=== PATIENT | female | born 1950 | race Caucasian/White ===

== ENCOUNTER 2020-05-09 11:04 | Observation (INO) | payer OTHER, SELFPAY ==
[2020-05-09] VITALS (25 sets, daily range): BP systolic 102–132; BP diastolic 52–73; PULSE 60–91; RESP 8–26; TEMP 36.2–37; O2SAT 97–100
--- NOTE | 2020-05-09 12:15 | RT.EKG_ITS ---
APPROVED REPORT Exam: Resting ECG Patient Location: E HR:66 bpm ECG Measurements Heart Rate 66 AXIS MA 173 P 61 QRSd 82 QRS 39 QT 392 T -8 QTc 411 Conclusion Sinus rhythm...normal P axis, V-rate 60- 99 sinus rhythm at 66, normal axis, flat T waves lead aVF, no STEMI, no prior available for comparison, nondiagnostic EKG
[2020-05-09 12:42] LABS: Abs Immature Grans 0.04 10^3/uL (0.0-0.06); Absolute Basophil Count 0.04 10^3/uL (0.0-0.2); Absolute Eosinophil Count 0.16 10^3/uL (0.0-0.7); Absolute Lymphocyte Count 2.17 10^3/uL (1.2-3.4); Absolute Monocyte Count 0.93 10^3/uL (0.1-0.8); Absolute Neutrophil Count 6.22 10^3/uL (1.2-6.7); Basophils % 0.4; Eosinophils % 1.7; HCT 42.4 % (36.0-46.0); HGB 14.7 g/dL (11.2-15.7); Immature Grans % 0.4; Lymphocytes % 22.7; MCH 29.1 pg (27.0-33.0); MCHC 34.7 % (32.0-36.0); MCV 83.8 fL (80-95); MPV 10.9 fL (8.0-11.0); Monocytes % 9.7; Neutrophils % 65.1; Nucleated RBC 0 %; Platelet Count 331 10^3/uL (130-400); RBC 5.06 10^6/uL (3.93-5.22); RDW 13.9 % (11.7-14.6); RDW-SD 42.4 fL; WBC 9.56 10^3/uL (4.4-10.8)
[2020-05-09 12:58] LABS: ALT 34 U/L (14-59); AST 20 U/L (15-37); Alkaline Phosphatase 77 U/L (46-116); BUN 25 mg/dL (7-18); Bilirubin, Total 0.6 mg/dL (0.2-1.0); CREATININE 1.34 mg/dL (0.55-1.02); Calcium 9.8 mg/dL (8.5-10.1); Chloride 100 mmol/L (98-107); Estimated GFR 39.33 (mL/min/1.73m2); Glucose 101 mg/dL (74-106); Lipase 248 U/L (73-393); Potassium 4.1 mmol/L (3.5-5.1); Sodium 135 mmol/L (136-145); Total Protein 7.7 g/dL (6.4-8.2); Troponin I < 0.05 ng/mL (<0.06)
--- NOTE | 2020-05-09 13:00 | DI.US_ITS ---
EXAM: US ABDOMEN LIMITED CLINICAL HISTORY: RUQ pain TECHNIQUE: Ultrasound abdomen performed using standard protocol. COMPARISON: No exams were available for comparison FINDINGS: There is no ascites evident. LIVER: Liver is somewhat hyperechoic indicating an element of steatosis. No discrete focal hepatic l esions identified. GALLBLADDER/BILIARY: Some gallbladder sludge. No gallbladder wall edema. No calcified gallstones. The common hepatic duct isnot dilated, measuring 3-4mm at the level of elise hepatis. PANCREAS: There is no evidence of pancreatic mass nor dilatation of the pancreatic duct. RIGHT KIDNEY:No evidence of solid mass, calculus, nor hydronephrosis. No cortical cysts evident. ABDOMINAL AORTA AND IVC: Visualized portions exhibit normal caliber. GALLBLADDER/BILIARY: Appears to be some sludge in the gallbladder. No shadowing gallstones. IMPRESSION: 1. No evidence of cholelithiasis nor dilatation of the biliary tree. Mild gallbladder sludge noted. 2. Hepatic steatosis. Correlation with appropriate hepatic blood work is recommended. 3. No other significant right upper quadrant ultrasound findings. DATA REPOSITORY:
[2020-05-09 13:04] LABS: Bilirubin Small (Negative); Blood Negative (Negative); Clarity Clear (Clear); Glucose Negative (Negative); Ketones 15 mg/dL (Negative); Leukocyte Esterase Negative (Negative); Nitrite Negative (Negative); Specific Gravity 1.025 (1.005-1.025); Urobilinogen 0.2 EU/dL (Up TO 0.2); pH 5.5 (5-8)
[2020-05-09 13:06] LABS: TSH (W/Ref FT4) 1.82 uIU/mL (0.36-3.74)
--- NOTE | 2020-05-09 13:19 | ED.GENADUL_ITS ---
Discharge Plan Disposition Condition: Improving Discharge Details Chief Complaint: Abd Prob Admit Date/Time: 05/09/20 15:15 Admit Provider: Eric Harper Attending Provider: Eric Harper Primary Care Provider: Venita Pelaez ED Provider: Zena Hyatt Discharge Instructions Activity:: Activity as Tolerated Equipment/Supplies:: No Equipment Needed Diet:: As Tolerated Discharge Orders Discharge Orders: Discharge Order (Routine); Ordered 05/10/20 Ordered By: Bijal Crystal Discharge Data Discharge Date/Time-TO BE ENTERED AT DEPARTURE: 05/09/20 16:28 Medical Decision Making Mena Moran is a 70 y/o woman who presented to the emergency department with abdominal pain, nausea, appetite loss, and weight loss since , now with worsening loss of appetite. On exam Pt appears fatigued but otherwise well and non-toxic. Mild TTP across upper abdomen. No RLQ TTP, no rebound or guarding. Concern for dehydration, neoplasm, metabolic/lyte derangement, other. Exam/hx at this time not c/w ACS, acute aortic pathology, acute emergent intra- abdominal pathology. Plan for EKG, screening labs, IV fluid hydration, given two recent CT abdomen/pelvis for same symptoms will hold off on CT at this time, will obtain right upper quadrant ultrasound. Will monitor and reassess. Labs reviewed. AG and Cr elevated. Suspect dehydration. Plan for continued IVF, admit for hydration, further eval. Clinical Impression: abdominal pain, dehydration Disposition: [facility] inpatient Medical Records Medical records reviewed: Yes I reviewed the patient's medical records. Imaging Data Radiologic Study: Attestation: I personally reviewed and interpreted this imaging study as follows: Lab Data Lab results reviewed: Yes I reviewed the patient's lab results. ECG Data Attestation: I personally reviewed and interpreted this ECG (s) as follows: Interpretation: EKG shows sinus rhythm at 66, normal axis, flat T waves lead aVF, no STEMI, no prior available for comparison, nondiagnostic EKG HPI General Mode of arrival: ambulatory . Date/Time Provider Initiated Documentation: 05/09/20 11:15 . Limitations to Documentation: no limitations . Information obtained by: patient, RN notes reviewed and old records reviewed . HPI Narrative: Mena Moran is a 70-year-old woman with a history of hypertension, hyperlipidemia presenting to the emergency department with appetite loss, nausea, abdominal pain. Patient reports that around she noticed that she had some loss of appetite with intermittent nausea. No known inciting event. Patient reports that she then began to have intermittent abdominal pain, had significant diarrhea which resolved. Patient reports that she has had continued intermittent nausea, intermittent abdominal pain, and severely decreased appetite. Patient reports that since onset of symptoms she has been seen in the [facility] emergency department 3 times. She has undergone 2 CT scans of the abdomen during that time, which were both nondiagnostic. Patient had an upper endoscopy which showed polyps. Patient has been taking medications for reflux/gastritis with no improvement in her symptoms. Patient reports that her appetite has become so poor that she is having trouble drinking liquids, and has not had anything to eat for 3 days. She reports intermittent generalized abdominal pain, intermittent right upper quadrant pain, and intermittent pain in her right upper back in the area of her shoulder blade. She denies any other pain, fevers, shortness of breath, cough, vomiting, numbness, weakness, rash. Never had similar symptoms in the past. Patient reports that she has lost 20 pounds since onset of symptoms. Related Data Home Medications Medication Instructions Recorded Confirmed hydrochlorothiazide 25 mg DAILY 05/09/20 05/09/20 lisinopril 20 mg PO DAILY 05/09/20 05/09/20 lisinopril 40 mg PO DAILY 05/09/20 05/09/20 metoprolol succinate 50 mg PO DAILY 05/09/20 05/09/20 omeprazole 20 mg PO BID-QID 05/09/20 05/09/20 potassium chloride 20 meq PO 05/09/20 rosuvastatin 10 mg PO DAILY 05/09/20 05/09/20 Allergies Allergy/AdvReac Type Severity Reaction Status Date / Time morphine Allergy Intermediate Hives Unverified 05/09/20 19:08 tizanidine [From Zanaflex] Allergy Intermediate Hives Unverified 05/09/20 19:08 valdecoxib [From Bextra] Allergy Intermediate Hives Unverified 05/09/20 19:08 General Stated Complaint: Abd Prob CHI: 3 Review of Systems Narrative: Constitutional: denies fevers, reports loos of appetite Eyes: denies eye pain ENT: denies ear pain, dental pain, sore throat Cardiovascular: denies chest pain Respiratory: denies SOB, cough GI: denies vomiting, reports abdominal pain, nausea, diarrhea as per HPI : denies flank pain MSK: denies neck pain, arthralgias, myalgias, reports right upper back pain as per HPI Skin: denies rash Neuro: denies headaches, numbness, weakness PFSH Medical History Abdominal pain HTN (hypertension) Hyperlipidemia Social History Smoking/Tobacco Use Status: Never Smoking risk assessment performed?: Yes Alcohol Intake: former Do you feel safe at home: Yes Do you feel safe in your relationship?: Yes Exam Narrative Exam Narrative: Constitutional: well and [id number], appears fatigued, conversing normally HENT: head atraumatic/normocephalic/normal inspection, mucous membranes moist Eyes: conjunctiva normal, sclera normal, pupils 3mm b/l Neck: no stridor, normal ROM, trachea midline Chest: normal inspection Resp: normal work of breathing, LCTAB Cardio: normal rate, normal rhythm, no murmur appreciated GI: abdomen soft, mild TTP across upper abdomen, no RLQ TTP, non-distended Back: normal inspection, no rash, no TTP Skin: warm, dry, normal color, no rash Neuro: alert, not altered, grossly non-focal, normal tone Ext: no edema Psych: normal mood, normal affect, normal behavior Course Vital Signs Vital signs: Respiratory Effort 05/09/20 11:48 Lab/Test Results Lab/Test Results: Laboratory Tests Range/Units 05/09/20 05/09/20 05/09/20 12:25 12:25 12:25 WBC (4.4-10.8) 10^3/uL 9.56 RBC (3.93-5.22) 10^6/uL 5.06 Hgb (11.2-15.7) g/dL 14.7 Hct (36.0-46.0) % 42.4 MCV (80-95) fL 83.8 MCH (27.0-33.0) pg 29.1 MCHC (32.0-36.0) % 34.7 RDW (11.7-14.6) % 13.9 Plt Count (130-400) 10^3/uL 331 MPV (8.0-11.0) fL 10.9 Immature Gran % 0.4 Neutrophils % 65.1 Lymphocytes % 22.7 Monocytes % 9.7 Eosinophils % 1.7 Basophils % 0.4 Nucleated RBC % % 0 Absolute Neutrophils (1.2-6.7) 10^3/uL 6.22 Absolute Lymphocytes (1.2-3.4) 10^3/uL 2.17 Absolute Monocytes (0.1-0.8) 10^3/uL 0.93 H Absolute Eosinophils (0.0-0.7) 10^3/uL 0.16 Absolute Basophils (0.0-0.2) 10^3/uL 0.04 Sodium (136-145) mmol/L 135 L Potassium (3.5-5.1) mmol/L 4.1 Chloride (98-107) mmol/L 100 Carbon Dioxide (21.0-32.0) mmol/L 22.0 Anion Gap (3-11) mmol/L 13.0 H BUN (7-18) mg/dL 25 H Creatinine (0.55-1.02) mg/dL 1.34 H Estimated GFR/1.73 m2 (mL/min/1.73m2) 39.33 Glucose (74-106) mg/dL 101 Calcium (8.5-10.1) mg/dL 9.8 Total Bilirubin (0.2-1.0) mg/dL 0.6 AST (15-37) U/L 20 ALT (14-59) U/L 34 Alkaline Phosphatase (46-116) U/L 77 Troponin I (<0.06) ng/mL < 0.05 Total Protein (6.4-8.2) g/dL 7.7 Albumin (3.4-5.0) g/dL 4.0 Lipase (73-393) U/L 248 TSH (0.36-3.74) uIU/mL 1.82 Urine Color (Yellow) Urine Clarity (Clear) Urine pH (5-8) Ur Specific [place] (1.005-1.025) Urine Protein (Negative) mg/dL Urine Ketones (Negative) mg/dL Urine Blood (Negative) Urine Nitrite (Negative) Urine Bilirubin (Negative) Urine Urobilinogen (Up TO 0.2) EU/dL Ur Leukocyte Esterase (Negative) Urine Glucose (Negative) mg/dL Range/Units 05/09/20 12:54 WBC (4.4-10.8) 10^3/uL RBC (3.93-5.22) 10^6/uL Hgb (11.2-15.7) g/dL Hct (36.0-46.0) % MCV (80-95) fL MCH (27.0-33.0) pg MCHC (32.0-36.0) % RDW (11.7-14.6) % Plt Count (130-400) 10^3/uL MPV (8.0-11.0) fL Immature Gran % Neutrophils % Lymphocytes % Monocytes % Eosinophils % Basophils % Nucleated RBC % % Absolute Neutrophils (1.2-6.7) 10^3/uL Absolute Lymphocytes (1.2-3.4) 10^3/uL Absolute Monocytes (0.1-0.8) 10^3/uL Absolute Eosinophils (0.0-0.7) 10^3/uL Absolute Basophils (0.0-0.2) 10^3/uL Sodium (136-145) mmol/L Potassium (3.5-5.1) mmol/L Chloride (98-107) mmol/L Carbon Dioxide (21.0-32.0) mmol/L Anion Gap (3-11) mmol/L BUN (7-18) mg/dL Creatinine (0.55-1.02) mg/dL Estimated GFR/1.73 m2 (mL/min/1.73m2) Glucose (74-106) mg/dL Calcium (8.5-10.1) mg/dL Total Bilirubin (0.2-1.0) mg/dL AST (15-37) U/L ALT (14-59) U/L Alkaline Phosphatase (46-116) U/L Troponin I (<0.06) ng/mL Total Protein (6.4-8.2) g/dL Albumin (3.4-5.0) g/dL Lipase (73-393) U/L TSH (0.36-3.74) uIU/mL Urine Color (Yellow) Yellow Urine Clarity (Clear) Clear Urine pH (5-8) 5.5 Ur Specific [place] (1.005-1.025) 1.025 Urine Protein (Negative) mg/dL Negative Urine Ketones (Negative) mg/dL 15 H Urine Blood (Negative) Negative Urine Nitrite (Negative) Negative Urine Bilirubin (Negative) Small H Urine Urobilinogen (Up TO 0.2) EU/dL 0.2 Ur Leukocyte Esterase (Negative) Negative Urine Glucose (Negative) mg/dL Negative
[2020-05-09] MEDS: Normal Saline 1,000 ML 1000 ML IV (13:25)
--- NOTE | 2020-05-09 15:30 | RT.EKG_ITS ---
APPROVED REPORT Exam: Resting ECG Patient Location: E HR:65 bpm ECG Measurements Heart Rate 65 AXIS MO 181 P 72 QRSd 91 QRS 48 QT 410 T -3 QTc 428 Conclusion Sinus rhythm...normal P axis, V-rate 60- 99 twave inv III, flat aVF, no stemi
[2020-05-09 16:13] LABS: Troponin I < 0.05 ng/mL (<0.06)
--- NOTE | 2020-05-09 16:21 | W.PM.HP.N ---
Date of service: 05/09/20 Time of Service: 16:22 Assessment and Plan Assessment and plan (1) Abdominal pain: Start date: 05/09/20 Start time: 16:40 Status: Acute Assessment and plan: Abdominal pain since around thanksgiving with loss of appetite, n/v, diarrhea (since resolved), intermittent abd pain, and per patient 20 lb wt loss. Seen three times at [facility] with CT scans that were nondiagnostic, she has had an upper endoscopy but no c-scope. She continues to have loss of appetite worsening over the last 3 days. Due to renal function will hold off on CT today, hydrate with IVF, antiemetics, analgesics for pain CT scan tomorrow dennis scan r/o masses or mets when renal function improves Possible c-scope with surgery, will need GI referral on discharge. clear liquids Qualifiers: Abdominal location: epigastric Qualified Code(s): R10.13 - Epigastric pain (2) Loss of appetite: Start date: 05/09/20 Start time: 16:44 Status: Acute Assessment and plan: unknown cause at this time. As above (3) Weight loss: Start date: 05/09/20 Start time: 16:44 Status: Acute Assessment and plan: from above (4) Starvation ketoacidosis: Start date: 05/09/20 Start time: 16:48 Status: Acute Assessment and plan: Due to loss of appetite and inability to drink liquids (5) Acute kidney injury: Start date: 05/09/20 Start time: 16:46 Status: Acute Assessment and plan: Unsure baseline renal function. Will hydrate and monitor renal function likely MY due to starvation and inability to drink liquids. (6) Nausea: Start date: 05/09/20 Start time: 16:45 Status: Acute Assessment and plan: from above (7) Hyperlipidemia: Start date: 05/09/20 Start time: 16:45 Status: Chronic Assessment and plan: continue statin at this time Qualifiers: Hyperlipidemia type: unspecified Qualified Code(s): E78.5 - Hyperlipidemia, unspecified (8) HTN (hypertension): Start date: 05/09/20 Start time: 16:45 Status: Chronic Assessment and plan: Continue BB hold SEVEN and HCTZ due to Renal function Qualifiers: Hypertension type: essential hypertension Qualified Code(s): I10 - Essential (primary) hypertension (9) DVT prophylaxis: Start date: 05/09/20 Start time: 16:49 Status: Acute Assessment and plan: Subcu heparin above case discussed with Dr. Harper who is in agreement. History of Present Illness History of Present Illness Chief Complaint: Dehydration, loss of appetite, n/v, unintentional wt loss Narrative: 70 y.o female with PMH of HTN, HLD, presents to [facility] ED after months of loss of appetite, n/v/, wt loss and abd pain. Patient reports symptoms onset around Thanksgiving with loss of appetite and intermittent nausea. She also reports intermittent abdominal pain with diarrhea that has resolved. She was seen by [facility] ED 3 times. She has had 3 CT scans of the abd during this time which were nondiagnostic. Upper Endoscopy done revealed polyps. She has been taking medications for reflux and gastritis with no relief. She now reports inability to tolerate liquids for the last 3 days due to poor appetite and has not ate anything in the last 3 days. 20 lb wt loss reported in the last couple months due to symptoms. Lab reveal sodium 135, creatinine 1.34 with BUN 25, Anion gap 13.0 due to starvation acidosis otherwise unremarkable. Urine negative for nitrates and leuk est. U/s abd with mild gallbladder sludge otherwise not significant she has been asked to be admitted to M/S obs by hospitalist for further management. Will hydrate overnight, repeat labs in am, obtain dennis scan CT when renal function improves. Hold nephrotoxic medications, clears. Review of Systems All systems reviewed & are unremarkable except as noted in HPI and below PFSH Medical History Abdominal pain HTN (hypertension) Hyperlipidemia Social History Smoking/Tobacco Use Status: Never Smoking risk assessment performed?: Yes Alcohol Intake: former Do you feel safe at home: Yes Do you feel safe in your relationship?: Yes Meds Home Medications and Allergies Home Medications Medication Instructions Recorded Confirmed Type hydrochlorothiazide 25 mg DAILY 05/09/20 05/09/20 History lisinopril 20 mg PO DAILY 05/09/20 05/09/20 History lisinopril 40 mg PO DAILY 05/09/20 05/09/20 History metoprolol succinate 50 mg PO DAILY 05/09/20 05/09/20 History omeprazole 20 mg PO BID-QID 05/09/20 05/09/20 History potassium chloride 20 meq PO 05/09/20 History rosuvastatin 10 mg PO DAILY 05/09/20 05/09/20 History Allergies Allergy/AdvReac Type Severity Reaction Status Date / Time morphine Allergy Unverified 05/09/20 11:58 valdecoxib [From Bextra] Allergy Unverified 05/09/20 11:58 Exam Narrative Exam Narrative: Const: well and [id number], pleasant, conversing normally HENT: head atraumatic/normocephalic/normal inspection, mucous membranes moist Eyes: conjunctiva normal, sclera normal, pupils 3mm b/l Neck: no stridor, normal ROM, trachea midline Chest: normal inspection Resp: normal work of breathing, LCTAB Cardio: normal rate, normal rhythm, no murmur appreciated GI: abdomen soft, tender to mid epigastric, and left upper and lower quads Back: normal inspection, no rash Skin: warm, dry, normal color, no rash Neuro: alert, not altered, grossly non-focal, normal tone Ext: no edema Psych: normal mood, normal affect, normal behavior Results Labs Result diagrams: 05/09/20 12:25 05/09/20 12:25 Labs: Laboratory Results - last 24 hr 05/09/20 05/09/20 05/09/20 12:25 12:25 12:25 WBC 9.56 RBC 5.06 Hgb 14.7 Hct 42.4 MCV 83.8 MCH 29.1 MCHC 34.7 RDW 13.9 Plt Count 331 MPV 10.9 Immature Gran % 0.4 Neutrophils % 65.1 Lymphocytes % 22.7 Monocytes % 9.7 Eosinophils % 1.7 Basophils % 0.4 Nucleated RBC % 0 Absolute Neutrophils 6.22 Absolute Lymphocytes 2.17 Absolute Monocytes 0.93 H Absolute Eosinophils 0.16 Absolute Basophils 0.04 Sodium 135 L Potassium 4.1 Chloride 100 Carbon Dioxide 22.0 Anion Gap 13.0 H BUN 25 H Creatinine 1.34 H Estimated GFR/1.73 m2 39.33 Glucose 101 Calcium 9.8 Total Bilirubin 0.6 AST 20 ALT 34 Alkaline Phosphatase 77 Troponin I < 0.05 Total Protein 7.7 Albumin 4.0 Lipase 248 TSH 1.82 Urine Color Urine Clarity Urine pH Ur Specific [place] Urine Protein Urine Ketones Urine Blood Urine Nitrite Urine Bilirubin Urine Urobilinogen Ur Leukocyte Esterase Urine Glucose 05/09/20 05/09/20 12:54 15:35 WBC RBC Hgb Hct MCV MCH MCHC RDW Plt Count MPV Immature Gran % Neutrophils % Lymphocytes % Monocytes % Eosinophils % Basophils % Nucleated RBC % Absolute Neutrophils Absolute Lymphocytes Absolute Monocytes Absolute Eosinophils Absolute Basophils Sodium Potassium Chloride Carbon Dioxide Anion Gap BUN Creatinine Estimated GFR/1.73 m2 Glucose Calcium Total Bilirubin AST ALT Alkaline Phosphatase Troponin I < 0.05 Total Protein Albumin Lipase TSH Urine Color Yellow Urine Clarity Clear Urine pH 5.5 Ur Specific [place] 1.025 Urine Protein Negative Urine Ketones 15 H Urine Blood Negative Urine Nitrite Negative Urine Bilirubin Small H Urine Urobilinogen 0.2 Ur Leukocyte Esterase Negative Urine Glucose Negative Last Vital Signs Pulse 62 05/09/20 15:46 Resp 13 05/09/20 15:50 BP 116/52 L 05/09/20 15:46 Pulse Ox 100 05/09/20 15:50 COVID-19 Screening Have you, or household traveled for leisure in last 14 days?: No Had IN PERSON contact w/suspected or confirmed C-19 person: No
[2020-05-09] MEDS: Normal Saline Flush 10 ML SYR IVP ×2 (17:23→17:45)
[2020-05-09] MEDS: Heparin 5,000 UNITS/ML VIAL 5000 UNITS SC (17:24)
[2020-05-09] MEDS: Lactated Ringers 1,000 ML 100 ML IV (17:24)
[2020-05-09] MEDS: Loratidine 10 MG TAB PO (17:35)
[2020-05-09] MEDS: Ondansetron 4 MG/2 ML VIAL IVP (17:45)
[2020-05-09] MEDS: Dicyclomine 20 MG TAB PO (19:32)
[2020-05-10] MEDS: Heparin 5,000 UNITS/ML VIAL 5000 UNITS SC ×3 (00:42→15:57)
[2020-05-10] MEDS: Lactated Ringers 1,000 ML 100 ML IV ×2 (03:10→13:21)
[2020-05-10 06:52] LABS: Abs Immature Grans 0.02 10^3/uL (0.0-0.06); Absolute Basophil Count 0.03 10^3/uL (0.0-0.2); Absolute Eosinophil Count 0.19 10^3/uL (0.0-0.7); Absolute Lymphocyte Count 2.19 10^3/uL (1.2-3.4); Absolute Monocyte Count 0.73 10^3/uL (0.1-0.8); Absolute Neutrophil Count 3.78 10^3/uL (1.2-6.7); Basophils % 0.4; Eosinophils % 2.7; HGB 12.1 g/dL (11.2-15.7); Immature Grans % 0.3; Lymphocytes % 31.6; MCH 29.2 pg (27.0-33.0); MCHC 33.6 % (32.0-36.0); MPV 10.7 fL (8.0-11.0); Monocytes % 10.5; Neutrophils % 54.5; Nucleated RBC 0 %; Platelet Count 254 10^3/uL (130-400); RBC 4.14 10^6/uL (3.93-5.22); RDW 13.9 % (11.7-14.6); RDW-SD 44.3 fL; WBC 6.94 10^3/uL (4.4-10.8)
[2020-05-10 06:58] LABS: BUN 17 mg/dL (7-18); Calcium 8.7 mg/dL (8.5-10.1); Chloride 105 mmol/L (98-107); Estimated GFR 49.39 (mL/min/1.73m2); Glucose 94 mg/dL (74-106); Magnesium 1.6 mg/dL (1.8-2.4); Potassium 4.1 mmol/L (3.5-5.1); Sodium 138 mmol/L (136-145)
[2020-05-10 07:13] VITALS: BP 113/66; PULSE 61; RESP 18; TEMP 36.7; O2SAT 97
[2020-05-10] MEDS: Dicyclomine 20 MG TAB PO ×3 (08:56→15:57)
[2020-05-10] MEDS: Metoprolol CR 50 MG TABCR PO (08:56)
[2020-05-10] MEDS: Pantoprazole 40 MG VIAL IVP (08:59)
[2020-05-10] MEDS: Magnesium Gluconate 500 MG TAB PO (09:34)
[2020-05-10 11:06] LABS: COVID-19 RT-PCR UVMMC Result Negative (Negative)
[2020-05-10] MEDS: Loratidine 10 MG TAB PO (11:09)
--- NOTE | 2020-05-10 11:36 | PT.INIE ---
Date of service: 05/10/20 Time of Service: 11:36 PT Notes Visit Reasons: DEHYDRATION, ABDOMINAL PAIN Physical Therapy Inpatient Initial Evaluation Date: 05/10/2020 Referring Doctor: Radha Vargas NP PT Orders: PT CONSULT: Eval/Treat Precautions: Fall. Standard. Activity as tolerated. Patient Profile/Admitting Diagnosis: Mena is a 70-year-old female who presented to the ED on 05/09/2020 with chief complaint of loss of appetite, nausea, abdominal pain. She is diagnosed with abdominal pain, loss of appetite, weight loss, starvation ketoacidosis, acute kidney injury, nausea, hyperlipidemia. PMHX: Medical History Abdominal pain HTN (hypertension) Hyperlipidemia Social History/Home Situation: Lives with in a private home with three steps to enter and rails on both sides. Independent with all aspects of ADLs without an assistive device. Still drives. Equipment Owned/DME: None Subjective: Mena reports that she does not hurt as much as she did yesterday. States that she has walked inside her room tentimes already while holding onto IV pole. Denies nausea, vomitting and diarrhea since this morning. Objective: General Observation: IV in L brachium Mental Status: Alert and oriented x 4 Pain: 1-2/10 in the abdominal area ROM: Right Upper Extremity: Shoulder Flexion WFL. Shoulder abduction WFL. Elbow flexion WFL. Wrist flexion WFL. Opening and closing of hand WFL. Left Upper Extremity: Shoulder Flexion WFL. Shoulder abduction WFL. Elbow flexion WFL. Wrist flexion WFL. Opening and closing of hand WFL. Right Lower Extremity: Hip flexion WFL. Hip abduction WFL. Knee flexion WFL. Ankle dorsiflexion WFL. Ankle plantarflexion WFL. Left Lower Extremity: Hip flexion WFL. Hip abduction WFL. Knee flexion WFL. Ankle dorsiflexion WFL. Ankle plantarflexion WFL. Strength: Right Upper Extremity: Shoulder flexors 5/5. Shoulder abductors 5/5. Elbow flexors 5/5. Elbow extensors 5/5. Accident Report Clerk strong. Left Upper Extremity: Shoulder flexors 5/5. Shoulder abductors 5/5. Elbow flexors 5/5. Elbow extensors 5/5. Accident Report Clerk strong. Right Lower Extremity: Hip flexors 4/5. Hip abductors 5/5. Knee flexors 5/5. Knee extensors 5/5. Ankle dorsiflexors 5/5. Ankle plantarflexors 5/5. Left Lower Extremity:Hip flexors 4/5. Hip abductors 5/5. Knee flexors 5/5. Knee extensors 5/5. Ankle dorsiflexors 5/5. Ankle plantarflexors 5/5. Sensation: Intact as to pain and pressure on bilateral lower extremities. Bed Mobility/Transfers: Rolling independent Supine to sit independent Sit to supine independent Sit to stand independent Stand to sit independent Bed to chair independent Chair to bed independent Gait: 300 feet of level surface ambulation without an assistive device with PT just managing the IV pole. No report of lightheadedness, nausea, and increased abdominal pain. Balance: Static Sitting: Normal Dynamic Sitting: Normal Static Standing: Normal Dynamic Standing: Good 4-stage balance test: Able to maintain all three positions for 10 seconds but did not feel safe doing the one-legged stance. 30-second chair rise: 12/minute with no increase in abdominal pain complaint Special Tests: Mobility Limitations Standardized Measure [facility] 6 clicks Basic Mobility Inpatient Short Form: Raw Score: 24 CMS Score: 100% deficit Informed Consent/Education: Patient instructed in purpose of PT consult and plan of care. Assessment: Mena is independent with all bed mobility, transfers, and ambulation task performance without an assistive device. She does not need services at this time. May walk in the hallway twice a day as tolerated. No AD required. [place] a 47854 low complexity based on the following: History: 70-year-old female with impairment level findings, functional limitations, and past medical history as indicated above Examination: Demonstrable impairment in strength, balance, and mobility level with underlying impairments and functional limitations as documented above Presentation:Evolving Decision Makin low complexity Goals: N/A. PT eval only. Plan of Care/Treatment Plan: N/A. PT eval only. DISCHARGE RECOMMENDATIONS: Home when medically cleared by hospitalist. No equipment needs at this time. TREATMENT CODE/TIME: 60964 x 24 minutes beginning at 11:36 AM. Thank you for the opportunity to participate in the care of this patient. Candy Gomez PT, DPT, CLT [facility], [place]
--- NOTE | 2020-05-10 14:54 | PDOC.CMIN ---
- If Service Date Differs Date of service: 05/10/20 Time of Service: 14:54 Care Management Initial Assess REASON FOR HOSPITALIZATION:: Dehydration, Abdominal pain PAST MEDICAL HISTORY/PAST SURGICAL HISTORY:: Medical History. Abdominal pain. HTN (hypertension). Hyperlipidemia PREVIOUS FUNCTIONAL STATUS/SOCIAL/FAMILY SUPPORTS:: Mena lives with her , Eliud in [place]. They have three adult children who all live in [place]. Mena grew up in [place], but moved to [place] which is where her and her raised their children. 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 She has one grandson who is three, and she is able to facetime with him often. She enjoys gardening and conrado, and is independent at baseline. CURRENT FUNCTIONAL STATUS:: Mena was lying in bed when CM met with her. She reported that she is feeling much better today. She stated that her plan is to have her diet advanced and to see if she is able to tolerate food. Per provider, if she tolerates her diet she will be ready for discharge. She stated that she did eat some lunch and had a bowel movement, which she was happy about. She stated that she is still nervous that her symptoms will return. Per provider, she will monitor her overnight and will likely discharge her in the morning. CM will continue to follow. ADVANCE DIRECTIVES:: None on file, CM will offer forms. Has patient been provided with info about the portal/API?: Yes Did the patient sign up for the portal?: No CODE STATUS:: Full Code INSURANCE COVERAGE / FINANCIAL ISSUES:: Commercial MCR replacement ([employer]) CURRENT HOME/COMMUNITY SERVICES/EQUIPMENT:: No current services or equipment PRIMARY CARE PHYSICIAN:: Venita Pelaez POTENTIAL DISCHARGE NEEDS:: Evaluations for further needs, follow up appointments PATIENT/FAMILY EDUCATION NEEDS:: Review discharge instructions regarding activity levels, medications and diet, discussion of self care needs including ask me three. ANTICIPATED BARRIERS TO DISCHARGE:: None identified at this time. TRANSPORTATION:: Via private vehicle by her . PLAN:: Anticipate Mena will return home when medically cleared with no additional services. She will be driven home by her when ready. She will follow up with her PCP and discharge plan of care. CM will continue to follow.
[2020-05-10 15:45] VITALS: BP 125/73; PULSE 65; RESP 18; TEMP 37.1; O2SAT 99
--- NOTE | 2020-05-10 15:57 | W.PM.DS.N ---
Date of service: 05/10/20 Time of Service: 15:58 DS: Diagnosis Discharge Diagnosis (1) Abdominal pain: Status: Acute (2) Loss of appetite: Status: Acute (3) Weight loss: Status: Acute (4) Starvation ketoacidosis: Status: Acute (5) Acute kidney injury: Status: Acute (6) Nausea: Status: Acute (7) Hyperlipidemia: Status: Chronic (8) HTN (hypertension): Status: Chronic Discharge Plan Disposition Patient Disposition: HOME Condition: Improving Discharge Details Reason For Visit: DEHYDRATION, ABDOMINAL PAIN Admit Date/Time: 05/09/20 15:15 Admit Provider: Eric Figueroa Attending Provider: Eric Figueroa Primary Care Provider: Venita Pelaez [facility] Course Hospital Course: This is a 70 y.o female with past medical history of hypertension, hyperlipidemia who presented to [facility] ED after months of loss of appetite, nausea and vomiting, weight loss and abdominal pain. Patient reports symptoms onset around giving with loss of appetite and intermittent nausea. She also reports intermittent abdominal pain with diarrhea that has resolved. She was seen by [facility] ED 3 times. She has had 3 CT scans of the abd during this time which were non-diagnostic. Upper Endoscopy done revealed polyps which have been biopsied and she is awaiting results. She has been taking medications for reflux and gastritis with no relief. She now reports inability to tolerate liquids for 3 days due to poor appetite. A 20 lb wt loss reported in the last couple months due to symptoms. Lab reveal sodium 135, creatinine 1.34 with BUN 25, Anion gap 13.0 due to starvation acidosis otherwise unremarkable. Urine negative for nitrates and leuk est. U/s abd with mild gallbladder sludge otherwise not significant. She was referred to observation to M/S by hospitalist for further management. She was given clear liquids which she tolerated well. her diet was advanced, which she also tolerated. she has been hemodynamically stable, tolerating oral with no abdominal pain. she is being discharged to home to follow up outpatient with general surgeon and pcp as previously directed. discussed with Dr Figueroa Home Meds and New Rx's Prescriptions: Continued lisinopril 20 mg Tablet 20 mg PO DAILY RF: 0 potassium chloride 10 mEq Tablet Extended Release 20 meq PO RF: 0 omeprazole 20 mg Capsule,Delayed Release(Dr/Ec) 20 mg PO BID-QID RF: 0 hydrochlorothiazide 25 mg Tablet 25 mg DAILY RF: 0 lisinopril 40 mg Tablet 40 mg PO DAILY RF: 0 rosuvastatin 10 mg Tablet 10 mg PO DAILY RF: 0 metoprolol succinate 50 mg tablet extended release 24 hr 50 mg PO DAILY RF: 0 Discharge Instructions Instructions: Acute Nausea and Vomiting (DC) Additional Instructions: start with clear liquids and slowly advance as tolerated. avoid foods that worsen symptoms, try low fat, gluten free. eat small frequent meals to slowly increase nutritional status add high protein drinks such as carnation instant breakfast, ensure or any other meal replacement supplement if unable to tolerate solids. follow up with general surgery and pcp as previously directed. Referrals: Venita Pelaez [Primary Care Provider] - Activity:: Activity as Tolerated Equipment/Supplies:: No Equipment Needed Diet:: As Tolerated Discharge Orders Discharge Orders: Discharge Order (Routine); Ordered 05/10/20 Ordered By: Bijal Crystal DS: Summary Status at Discharge Functional status at discharge: independent ambulation Overall status at discharge: patient is progressing back to baseline Mental Status: mental status grossly normal Speech and Movement: speech and movement normal Mood: congruent mood Affect: anxious affect Exam Narrative Exam Narrative: Const: well and [id number], pleasant, conversing normally, appears anxious, obese HENT: head atraumatic/normocephalic/normal inspection, mucous membranes moist Eyes: conjunctiva normal, sclera normal, nonicteric Neck: supple Chest: normal inspection Resp: normal work of breathing, respirations even and unlabored Cardio: normal rate, normal rhythm, no murmur appreciated GI: obese abdomen soft, non-tender Back: normal inspection Skin: warm, dry, normal color, no rash Neuro: alert, oriented, no focal deficits, normal tone Ext: no edema Psych: anxious mood, normal affect, normal behavior Psych Mental Status: mental status grossly normal Speech and Movement: speech and movement normal Mood: congruent mood Affect: anxious affect DS: Data Vitals/I&O Vitals and I&O: Vital Signs Temperature 37.1 C 05/10/20 15:45 Temperature Source Tympanic 05/10/20 15:45 Pulse 65 05/10/20 15:45 Pulse Rhythm Regular 05/10/20 08:00 Pulse 66 05/09/20 15:50 Respiratory Rate 18 05/10/20 15:45 Respiratory Effort 05/10/20 08:00 Respiratory Depth Normal 05/10/20 08:00 Respiratory Pattern Normal 05/10/20 08:00 Blood Pressure 125/73 05/10/20 15:45 Blood Pressure Mean 69 05/09/20 15:46 Pulse Oximetry 99 05/10/20 15:45 Oxygen Delivery Method Room Air 05/10/20 15:45 Oxygen Flow Rate 0 05/10/20 15:45 Pain Level 0 05/10/20 15:45 Intake & Output 05/09/20 05/10/20 05/10/20 23:59 11:59 23:59 Intake Total 1020 / 1020 1456.667 / 2576.667 1120 / 2576.667 Output Total 125 / 125 950 / 1400 450 / 1400 Balance 895 / 895 506.667 / 1176.667 670 / 1176.667 Intake: IV 1020 / 1020 976.667 / 0263.627 4426 / 1975.667 Oral 480 / 600 120 / 600 Output: Urine 125 / 125 950 / 1400 450 / 1400 Other: Urine Color Pale Straw Yellow Urine Appearance Clear Clear Clear Urine Odor None Normal Comment pt voided independently pt stated at home she goes to bed and always sleeps t/o the noc and voids in the am when she wakes. Does not wake and void during the noc RN did not assess urine Stool Characteristics Soft Liquid Brown Voiding Methods Toilet Toilet Toilet Data Completed and Pending Labs on day of discharge: Labs from last 24 hours 05/10/20 05/10/20 05/10/20 06:15 06:15 06:15 WBC 6.94 RBC 4.14 Hgb 12.1 D Hct 36.0 MCV 87.0 D MCH 29.2 MCHC 33.6 RDW 13.9 Plt Count 254 MPV 10.7 Immature Gran % 0.3 Neutrophils % 54.5 Lymphocytes % 31.6 Monocytes % 10.5 Eosinophils % 2.7 Basophils % 0.4 Nucleated RBC % 0 Absolute Neutrophils 3.78 Absolute Lymphocytes 2.19 Absolute Monocytes 0.73 Absolute Eosinophils 0.19 Absolute Basophils 0.03 Sodium 138 Potassium 4.1 Chloride 105 Carbon Dioxide 26.0 Anion Gap 7.0 BUN 17 D Creatinine 1.10 H Estimated GFR/1.73 m2 49.39 Glucose 94 Calcium 8.7 Magnesium 1.6 L Troponin I HLA-DQA1 Pending HLA-DQB1 Pending HLA Typ Interp Celiac Pending HLA Celiac Gene Pairs Pending SARS-CoV-2 (PCR) Nasopharyn COVID-19 PCR Ref Test Perform Site 05/09/20 05/09/20 15:35 15:25 WBC RBC Hgb Hct MCV MCH MCHC RDW Plt Count MPV Immature Gran % Neutrophils % Lymphocytes % Monocytes % Eosinophils % Basophils % Nucleated RBC % Absolute Neutrophils Absolute Lymphocytes Absolute Monocytes Absolute Eosinophils Absolute Basophils Sodium Potassium Chloride Carbon Dioxide Anion Gap BUN Creatinine Estimated GFR/1.73 m2 Glucose Calcium Magnesium Troponin I < 0.05 HLA-DQA1 HLA-DQB1 HLA Typ Interp Celiac HLA Celiac Gene Pairs SARS-CoV-2 (PCR) Negative Nasopharyn COVID-19 PCR Not Applicable Ref Test Perform Site [facility] Medical History (Updated 05/09/20 @ 16:46 by Radha Vargas NP) Abdominal pain HTN (hypertension) Hyperlipidemia Social History Smoking/Tobacco Use Status: Never Smoking risk assessment performed?: Yes Alcohol Intake: former Do you feel safe at home: Yes Do you feel safe in your relationship?: Yes
--- NOTE | 2020-05-11 11:55 | W.NUTCONSULT ---
Date of service: 05/11/20 Time of Service: 11:55 Nutritional Consult ASSESSMENT: spoke to Mena on phone today. Discharged from [facility] 05/09/20. Admitted with dehydration, starvation ketoacidosis, MY with 20 lbs weihgt loss in last couple of weeks. Mena reports she has been to ER, 4 times in last 6 weeks with inability to eat/drink. PMH: obesity, HTN, hyperlipidemia. Celiac panel pending. Recent upper GI/ CT indicates esophageal polyps and some sludge in gall bladder but no clear indication what is causes anorexia. Lipase wnl. Mena reports able to tolerate some yogurt, broth and pancake today. Reports formed stool. Estimated Needs: 8282-6331 kcal, 80-90 g protein, 2500 ml NUTRITIONAL DIAGNOSIS: anorexia due to inability to eat/drink secondary to n/v and abdominal pain INTERVENTION: Educated Mena on how to follow gluten free diet going forward until lab data back on celiac dx. Recommended ensure plus BID- consume 4 oz very hour (720 kcal, 30 g protein) . provided foods to consume/avoid. Encouraged small meals of oatmeal, potato, rice, broth, peeled vegetables, chicken fish. Will follow up weekly to advance diet as appropriate. Time Spent in Nutritional Counseling and Treatment: 20 min on phone
[2020-05-16 15:37] LABS: Celiac gene pairs present? Yes
== END 2020-05-10 17:16 | disposition home or self-care (01) ==
LOC: ER 15:51 → MS 16:31
PROVIDERS: Nurse Practitioner Family; Admitting Provider Internal Medicine; Emergency Provider Student in an Organized Health Care Education/Training Program; PCP Family Medicine; Visit Provider Internal Medicine
DX: R10.13 Epigastric pain (principal); R63.0 Anorexia; E87.2 Acidosis; R63.4 Abnormal weight loss; E78.5 Hyperlipidemia, unspecified; I10 Essential (primary) hypertension; N17.9 Acute kidney failure, unspecified
CPT/HCPCS: 36415; 80048; 80053; 83690; 86816; 93005; 96360; 97161; 99217; 99220; 99285; U0003; 76705; 81003; 83735; 84443; 84484; 85025; 93010; G0378; J1644; J2405

== ENCOUNTER 2020-12-30 06:56 | Day surgery (SDC) | payer OTHER, SELFPAY ==
[2020-12-30 07:05] VITALS: BP 165/68; PULSE 69; RESP 16; TEMP 36.3; O2SAT 98
[2020-12-30] MEDS: Tropicam./Phenyleph. (1/2.5%) 5 ML BTL OD ×3 (07:15→07:30)
--- NOTE | 2020-12-30 07:48 | W.ANESPRE ---
General Info Date of Service Date Performed: 12/30/20 Height: 5 ft 6 in Weight: 89.7 kg Body Mass Index (BMI): 31.8 Surgical Procedure: Operation Date: 12/30/20 08:40 Proposed Procedures Side Surgeon p Cataract Extraction with IOL Implant Right Stephen Antonio MD Meds Allergies and Home Medications Allergies Allergy/AdvReac Type Severity Reaction Status Date / Time morphine Allergy Hives Unverified 12/30/20 07:20 tizanidine [From Zanaflex] Allergy Hives Unverified 12/30/20 07:20 valdecoxib [From Bextra] Allergy Hives Unverified 12/30/20 07:20 metoclopramide [From Reglan] AdvReac Unknown Unknown Unverified 12/30/20 07:20 Home Medication Medication Instructions Recorded Lactobacillus acidoph-L.bulgar 1 cap PO TID 12/28/20 coenzyme Q10 [Co Q-10] 100 mg PO DAILY 12/28/20 cyanocobalamin (vitamin B-12) 1 tab PO DAILY 12/28/20 [Vitamin B-12] gabapentin 100 mg PO TID 12/28/20 hydrochlorothiazide 25 mg PO DAILY 12/28/20 lisinopril 40 mg PO DAILY 12/28/20 metoprolol succinate 50 mg PO DAILY 12/28/20 miconazole nitrate 1 applic TOPICAL BID 12/28/20 mirtazapine 15 mg PO HS 12/28/20 multivitamin 1 tab PO DAILY 12/28/20 olanzapine 5 mg PO HS 12/28/20 omeprazole 20 mg PO DAILY 12/28/20 potassium chloride 20 meq PO QAM 12/28/20 rosuvastatin 10 mg PO DAILY 12/28/20 Current Visit Medications: Current Medications Generic Name Dose Route Start Last Admin Trade Name Freq PRN Reason Stop Dose Admin Acetaminophen 1,000 mg 12/30/20 06:00 Acetaminophen 500 Mg Tab PO Q4H PRN PRN Miscellaneous Medication 0 ml 12/30/20 06:00 Prednisolone 1%, Moxifloxacin 0.5%, Nepafenac 0.1% 5ml Btl OD DIRECTED RAMON Miscellaneous Medication 0 ml 12/30/20 06:00 12/30/20 07:30 Tropicam./Phenyleph. (1/2.5%) 5 Ml Btl OD 1 drp DIRECTED RAMON Administration Tetracaine HCl 0 ml 12/30/20 06:00 Tetracaine 0.5% 4 Ml Btl OD DIRECTED RAMON PFSH Active Problems Active Problems: Problem Status Onset Code Posterior subcapsular age-related cataract, right eye H25.041 Cortical cataract of right eye H26.9 Nuclear sclerotic cataract of right eye H25.11 Medical History Medical History Aortic incompetence non rheumatic-pt. is unaware of this stated it was never pointed out to her specifically Arthropathy Atherosclerosis of coronary artery without angina pectoris Atrophic vaginitis Backache Cervical disc disorder Cervical radiculopathy Chronic ischemic heart disease pt. is unaware of this. DJD (degenerative joint disease), multiple sites HLD (hyperlipidemia) Hypertensive disorder MDD (major depressive disorder) Obesity Osteoporosis Otitis media Pain, joint, shoulder, right Strain of muscle at thorax level Thrombocytopenic disorder pt. states this was in 2019, states she was on medication and her number went back up and she has had no further issues Surgical History Surgical History History of lumpectomy of both breasts History of throat surgery Pt. states she had growths removed from her layrx 30 + years ago, r/t to allergies. Hx of hysterectomy Hx of tubal ligation Tobacco Smoking/Tobacco Use Status: Never Alcohol Alcohol Intake: current Alcohol intake frequency: holidays/special occasions only Alcohol type: wine Substance Use Substance use: Never Substance use type: does not use Details: alcohol: t-1, couple drinks Vital Signs and Lab Results Vital Signs Most Recent Vital Signs in EMR: Most Recent Vital Signs Temp Pulse Resp BP Pulse Ox 36.3 C L 69 16 165/68 H 98 12/30/20 07:05 12/30/20 07:05 12/30/20 07:05 12/30/20 07:05 12/30/20 07:05 Lab Results Blood Type / Crossmatch: No Data to Display Complete Blood Count: No Data to Display Complete Metabolic Panel: No Data to Display Liver Function Panel: No Data to Display Coagulation Panel: No Data to Display Cardiac Panel: No Data to Display Arterial Blood Gas: No Data to Display Venous Blood Gas: No Data to Display Pancreas Panel: No Data to Display Thyroid Panel: No Data to Display Infectious Disease: No Data to Display Blood Cultures: No Data to Display Toxicology Panel: No Data to Display Anesthesia Assessment and Plan Anesthesia History Personal History: PONV (40 years ago) Family History: No Family History of Anesthesia Complications Exercise Tolerance Exercise Tolerance: Metabolic Equivalents>4 Pertinent Negatives Pertinent Negatives: No Symptoms of GERD, No Major Cardiovascular Symptoms or Complaints, No Major Pulmonary Symptoms or Complaints and No History of CVA/TIA Cardiac & Pulmonary Exam Cardiac Exam: Normal S1/S2 Heart Sounds Pulmonary Exam: Clear Bilateral Breath Sounds Airway Exam Known Difficult Airway: No Mallampati Class: 1 Mouth Opening: Normal (> 3cm) Thyromental Distance: Greater than 3 cm Neck Range of Motion: Full ROM Neck Circumference: Normal Teeth Condition: Normal Dentition and Removable Dentures/Plates Upper ASA Classification ASA Score: ASA 2 Emergency Case?: No NPO Status NPO Status: NPO Clears >2 hours, Solids >8 hours Anesthesia Plan Resuscitation Status: Full Code Anesthesia Technique: MAC Anesthesia Airway Planned: Natural Airway Monitors Used: Standard Monitors
[2020-12-30 07:50] VITALS: BMI 31.8
[2020-12-30] MEDS: Tetracaine 0.5% 4 ML BTL OD (08:14)
[2020-12-30] MEDS: Duovisc Viscoelastic System EACH 1 EACH (08:15)
[2020-12-30] MEDS: Balanced Salt Soln.-PLUS 500 ML BAG (08:15)
[2020-12-30] MEDS: Lidocaine 1% Pres-Free 5 ML VIAL (08:18)
[2020-12-30] MEDS: Lidocaine 2% Jelly 6 ML SYR (08:20)
[2020-12-30] MEDS: Povidone-Iodine Ophth 30 ML BTL (08:23)
[2020-12-30 08:33] VITALS: BP 152/69; PULSE 68; RESP 16; TEMP 36.8; O2SAT 97
--- NOTE | 2020-12-30 08:34 | W.PM.DSUDISC ---
Discharge Plan Disposition Patient Disposition: HOME Condition: Good Discharge Details Attending Provider: Stephen Antonio Primary Care Provider: Korey Pelaez Home Meds and New Rx's Prescriptions: No Action multivitamin Tablet 1 tab PO DAILY RF: 0 metoprolol succinate 50 mg tablet extended release 24 hr 50 mg PO DAILY RF: 0 olanzapine 5 mg tablet 5 mg PO HS RF: 0 miconazole nitrate 2 % Powder 1 applic topical BID RF: 0 potassium chloride 20 mEq tablet,ER particles/crystals 20 meq PO QAM RF: 0 omeprazole 20 mg capsule,delayed release(DR/EC) 20 mg PO DAILY RF: 0 hydrochlorothiazide 25 mg tablet 25 mg PO DAILY RF: 0 mirtazapine 15 mg tablet 15 mg PO HS RF: 0 gabapentin 100 mg capsule 100 mg PO TID RF: 0 lisinopril 40 mg tablet 40 mg PO DAILY RF: 0 Vitamin B-12 Tablet,Chewable 1 tab PO DAILY RF: 0 coenzyme Q10 [Co Q-10] 100 mg Capsule 100 mg PO DAILY RF: 0 Lactobacillus acidoph-L.bulgar Capsule 1 cap PO TID RF: 0 rosuvastatin 10 mg tablet 10 mg PO DAILY RF: 0 Discharge Instructions Stand Alone Forms: Post-op Topical Cataract, Kira Duque (DSU) Discharge Orders Discharge Orders: Discharge Order (Routine); Ordered 12/30/20 Ordered By: Stephen Antonio DS: Diagnosis Discharge Diagnosis (1) Posterior subcapsular age-related cataract, right eye: Status: Resolved (2) Cortical cataract of right eye: Status: Resolved (3) Nuclear sclerotic cataract of right eye: Status: Resolved
--- NOTE | 2020-12-30 08:35 | W.PM.OP ---
Date of service: 12/30/20 Time of Service: 08:35 Operative Note Operative Note DATE OF PROCEDURE: 12/30/20 PRE-OP DIAGNOSIS: Nuclear/cortical/posterior subcapsular cataract, right eye POST-OP DIAGNOSIS: same PROCEDURE: Cataract extraction using phacoemulsification with intraocular lens implant, right eye SURGEON: Stephen Antonio ANESTHESIA TYPE: Local By Surgeon and MAC Refer to Anesthesia Record ESTIMATED BLOOD LOSS: 0 PATHOLOGY: none sent COMPLICATIONS: None Patient was transported to: same day Patient's condition: stable Implants: Geovanni & Geovanni/MARCO Tecnis [id number] Indications: Progressive visual loss due to cataract, right eye Procedure Description: CATARACT SURGERY OPERATIVE REPORT PREOPERATIVE DIAGNOSIS: 1. Nuclear/cortical/posterior subcapsular cataract, right eye POSTOPERATIVE DIAGNOSIS: Same OPERATION: 1. Cataract extraction using phacoemulsification with posterior chamber intraocular lens implant, right eye. IOL: IOL Associate Professor Of Psychology/Model: Geovanni [employer] Geovanni / MARCO Tecnis [id number] IOL Power: + 17.0 diopters IOL Serial Number: [id number] Optic Diameter: 6.0mm Haptic/Overall Diameter: 13.0mm PHACO INFO: [employer] Vision System with OZil and Active Fluidics Cumulative Dispersed Energy (CDE): 11.15 seconds SURGEON: Stephen Antonio MD, ANGEL ANESTHESIA: Monitored Anesthesia Care (MAC), with local sub-tenon's anesthetic infiltration COMPLICATIONS: None SPECIMENS: None INDICATIONS FOR PROCEDURE: The patient is a 70-year-old lady with history of diminished visual acuity in her right eye secondary to the development of nuclear/cortical/posterior subcapsular cataract. The option of cataract surgery was offered to the patient and she wished to proceed. PROCEDURE: The correct surgical eye was identified and marked as the right eye and the pupil was dilated in the preoperative area using mydriatics and cycloplegics. The dilated pupil size was 6.5 mm. Oral sedation was administered in the form of an Imprimis MKO Melt (midazolam 3mg/ketamine 25mg/ondansetron 2mg). The patient was brought to the operating room where cardiopulmonary monitoring was instituted and surgical time-out was performed, confirming the correct operative eye and IOL power. Topical anesthesia was administered and ophthalmic povidone-iodine 5% was instilled into the conjunctival fornices. Lidocaine gel was applied to the cornea and the gregorio-ocular area was prepped with Betadine 10% solution and draped in the usual sterile fashion for intraocular surgery, including an aperture drape. A Tegaderm transparent film dressing was cut in half and used to cover the lashes and lid margins. Care was taken to sequester the lashes and lid margins under the Tegaderm dressing. A lid speculum was placed between the lids of the operative eye and the Saad-Abigail operating microscope was maneuvered into position. Haja scissors were then used to make a conjunctival buttonhole approximately 6mm posterior to the limbus in the inferonasal quadrant. Blunt dissection was carried out to expose bare sclera, and a blunt-tipped sub-tenon?s anesthesia cannula was introduced and passed posteriorly along the globe where non-preserved plain lidocaine was injected into posterior sub-Tenon?s space. A sideport knife was used to make a paracentesis port inferotemporally. Intraocular phenylephrine/lidocaine was injected into the anterior chamber. The anterior chamber was filled with viscoelastic. A 2.4mm keratome knife was used to create a half-thickness groove at the limbus and then to construct a three-plane near-clear corneal tunnel extending 2.0mm into clear cornea superiortemporally. A flap was raised on the anterior capsule and capsulorhexis forceps were used to complete a continuous curvilinear capsulorhexis of 5.5 mm. Balanced salt solution was then used to perform cortical cleaving hydrodissection and nuclear hydrodelineation until the lens could be freely rotated within the capsular bag. The lens nucleus was then disassembled and removed within the capsular bag and iris plane using phacoemulsification. Residual cortical material was removed using the I/A handpiece. The posterior capsule was carefully polished to remove as much residual lens epithelial cells as safely possible. The capsular bag was then inflated and the anterior chamber deepened with viscoelastic. The lens implant described above was inserted into the capsular bag using the MARCO [place] Injector. A Kuglen hook was used to dial the IOL into position. Residual viscoelastic was then removed first from posterior to the IOL, then from the anterior chamber using the I/A handpiece. The lens implant was noted to center nicely within the capsular bag. The incisions were stromally hydrated, and the anterior chamber was reformed using BSS. Then 0.5cc of moxifloxacin 1.0mg/ml were injected into the capsular bag and anterior chamber. The incisions were checked with a Weck spear and found to be secure. Several drops of ophthalmic povidone-iodine 5% were then applied to the eye followed by two drops of Imprimis combination prednisolone/moxifloxacin/nepafenac solution. The drapes were removed and a clear plastic protective eye shield was placed over the eye. The patient was then returned to Same Day Surgery in stable condition.
--- NOTE | 2020-12-30 08:40 | W.ANESPOSTOP ---
Postoperative Evaluation Date, Time and Location Date Performed: 12/30/20 Time Performed: 08:41 Patient Location: Day Surgery Unit Vital Signs Most Recent Imported Vital Signs: Most Recent Vital Signs Temp Pulse Resp BP Pulse Ox 36.3 C L 69 16 165/68 H 98 12/30/20 07:05 12/30/20 07:05 12/30/20 07:05 12/30/20 07:05 12/30/20 07:05 Most Recent Manually Entered Vital Signs: Adult Blood Pressure: 112/69 Heart Rate: 68 Respirations: 16 Oxygen Saturation (%): 97 Temperature (C): 36.4 C Pain Score (0-10 Scale): 0 Assessment Mental Status: Awake (Alert & Oriented to Patient Baseline) Airway and Respiratory Function: Patent airway with normal (patient baseline) respiratory exam Cardiovascular Function: Hemodynamically Stable Hydration Status: Adequately Hydrated Nausea & Vomiting: No Nausea or Vomiting Pain: Pt. Denies Any Pain Peripheral Nerve Block: Patient did not receive a nerve block
[2020-12-30 08:45] VITALS: BP 112/69; PULSE 68; RESP 16; TEMPC 36.4; O2SAT 97
[2020-12-30 08:58] VITALS: BP 163/67; PULSE 67; RESP 16; TEMP 36.3; O2SAT 98
== END 2020-12-30 09:06 | disposition home or self-care (01) ==
PROVIDERS: PCP Family Medicine; Visit Provider Ophthalmology
PROC: (CPT 66984; principal; 2020-12-30 08:30)
DX: H25.041 Posterior subcapsular polar age-related cataract, right eye (principal); I10 Essential (primary) hypertension; E78.5 Hyperlipidemia, unspecified
CPT/HCPCS: 66984; V2632

== ENCOUNTER 2021-01-11 02:28 | Outpatient (CLI) | payer OTHER, SELFPAY ==
[2021-01-11 10:55] LABS: Source Nasal/Nares
[2021-01-11 13:24] LABS: COVID-19 PCR Negative (Negative)
== END 2021-01-11 02:29 | disposition home or self-care (01) ==
LOC: LBO 02:28
PROVIDERS: PCP Family Medicine; Visit Provider Ophthalmology
DX: Z20.822 Contact with and (suspected) exposure to COVID-19 (principal); Z01.818 Encounter for other preprocedural examination
CPT/HCPCS: 87635

== ENCOUNTER 2021-01-13 08:06 | Day surgery (SDC) | payer OTHER, SELFPAY ==
[2021-01-13] MEDS: Tropicam./Phenyleph. (1/2.5%) 5 ML BTL OS ×3 (08:40→08:53)
[2021-01-13 08:45] VITALS: BP 150/77; PULSE 66; RESP 16; TEMP 36.1; O2SAT 99
--- NOTE | 2021-01-13 09:13 | W.ANESPRE ---
General Info Date of Service Date Performed: 01/13/21 Height: 5 ft 6 in Weight: 90 kg Body Mass Index (BMI): 32.0 Surgical Procedure: Operation Date: 01/13/21 10:40 Proposed Procedures Side Surgeon p Cataract Extraction with IOL Implant Left Stephen Antonio MD Meds Allergies and Home Medications Allergies Allergy/AdvReac Type Severity Reaction Status Date / Time morphine Allergy Hives Unverified 01/13/21 08:32 tizanidine [From Zanaflex] Allergy Hives Unverified 01/13/21 08:32 valdecoxib [From Bextra] Allergy Hives Unverified 01/13/21 08:32 metoclopramide [From Reglan] AdvReac Unknown Unknown Unverified 01/13/21 08:32 Home Medication Medication Instructions Recorded Lactobacillus acidoph-L.bulgar 1 cap PO TID 12/28/20 coenzyme Q10 [Co Q-10] 100 mg PO DAILY 12/28/20 cyanocobalamin (vitamin B-12) 1 tab PO DAILY 12/28/20 [Vitamin B-12] gabapentin 100 mg PO TID 12/28/20 hydrochlorothiazide 25 mg PO DAILY 12/28/20 lisinopril 40 mg PO DAILY 12/28/20 metoprolol succinate 50 mg PO DAILY 12/28/20 miconazole nitrate 1 applic TOPICAL BID 12/28/20 mirtazapine 15 mg PO HS 12/28/20 multivitamin 1 tab PO DAILY 12/28/20 olanzapine 5 mg PO HS 12/28/20 omeprazole 20 mg PO DAILY 12/28/20 potassium chloride 20 meq PO QAM 12/28/20 rosuvastatin 10 mg PO DAILY 12/28/20 Current Visit Medications: Current Medications Generic Name Dose Route Start Last Admin Trade Name Freq PRN Reason Stop Dose Admin Miscellaneous Medication 5 ml 01/13/21 08:32 Prednisolone 1%, Moxifloxacin 0.5%, Nepafenac 0.1% 5ml Btl OS 01/13/21 23:59 DIRECTED [facility] Miscellaneous Medication 5 ml 01/13/21 08:35 01/13/21 08:53 Tropicam./Phenyleph. (1/2.5%) 5 Ml Btl OS 01/13/21 23:59 1 drp DIRECTED [facility] Administration Tetracaine HCl 4 ml 01/13/21 08:30 Tetracaine 0.5% 4 Ml Btl OS 01/13/21 23:59 DIRECTED [facility] Active Problems Active Problems: Problem Status Onset Code Nuclear sclerotic cataract of right eye H25.11 Cortical cataract of right eye H26.9 Posterior subcapsular age-related cataract, right eye H25.041 Medical History Medical History Aortic incompetence non rheumatic-pt. is unaware of this stated it was never pointed out to her specifically Arthropathy Atherosclerosis of coronary artery without angina pectoris Atrophic vaginitis Backache Cervical disc disorder Cervical radiculopathy Chronic ischemic heart disease pt. is unaware of this. DJD (degenerative joint disease), multiple sites HLD (hyperlipidemia) Hypertensive disorder MDD (major depressive disorder) Obesity Osteoporosis Otitis media Pain, joint, shoulder, right Strain of muscle at thorax level Thrombocytopenic disorder pt. states this was in 2019, states she was on medication and her number went back up and she has had no further issues Surgical History Surgical History History of lumpectomy of both breasts History of throat surgery Pt. states she had growths removed from her layrx 30 + years ago, r/t to allergies. Hx of cataract surgery Hx of hysterectomy Hx of tubal ligation Tobacco Smoking/Tobacco Use Status: Never Alcohol Alcohol Intake: current Alcohol intake frequency: holidays/special occasions only Alcohol type: wine Substance Use Substance use: Never Substance use type: does not use Vital Signs and Lab Results Vital Signs Most Recent Vital Signs in EMR: Most Recent Vital Signs Temp Pulse Resp BP Pulse Ox 36.1 C L 66 16 150/77 H 99 01/13/21 08:45 01/13/21 08:45 01/13/21 08:45 01/13/21 08:45 01/13/21 08:45 Lab Results Blood Type / Crossmatch: No Data to Display Complete Blood Count: No Data to Display Complete Metabolic Panel: No Data to Display Liver Function Panel: No Data to Display Coagulation Panel: No Data to Display Cardiac Panel: No Data to Display Arterial Blood Gas: No Data to Display Venous Blood Gas: No Data to Display Pancreas Panel: No Data to Display Thyroid Panel: No Data to Display Infectious Disease: Coronavirus (COVID-19)(PCR) Negative (Negative) 01/11/21 09:28 01/11/21 Coronavirus 2019 Source Nasal/Nares 01/11/21 09:28 01/11/21 Blood Cultures: No Data to Display Toxicology Panel: No Data to Display Anesthesia Assessment and Plan Anesthesia History Personal History: PONV (40 years ago) Family History: No Family History of Anesthesia Complications Exercise Tolerance Exercise Tolerance: Metabolic Equivalents>4 Pertinent Negatives Pertinent Negatives: No Symptoms of GERD and No Major Pulmonary Symptoms or Complaints Cardiac & Pulmonary Exam Cardiac Exam: Normal S1/S2 Heart Sounds Pulmonary Exam: Clear Bilateral Breath Sounds Airway Exam Known Difficult Airway: No Mallampati Class: 1 Mouth Opening: Normal (> 3cm) Thyromental Distance: Greater than 3 cm Neck Range of Motion: Full ROM Neck Circumference: Normal Teeth Condition: Normal Dentition and Removable Dentures/Plates Upper ASA Classification ASA Score: ASA 2 Emergency Case?: No NPO Status NPO Status: NPO Clears >2 hours, Solids >8 hours Anesthesia Plan Resuscitation Status: Full Code Anesthesia Technique: General Anesthesia Airway Planned: Natural Airway Monitors Used: Standard Monitors
[2021-01-13 09:14] VITALS: BMI 32.0
[2021-01-13] MEDS: Lidocaine 2% Jelly 6 ML SYR (09:35)
[2021-01-13] MEDS: Tetracaine 0.5% 4 ML BTL OS (09:35)
[2021-01-13] MEDS: Povidone-Iodine Ophth 30 ML BTL (09:38)
[2021-01-13] MEDS: Lidocaine 1% Pres-Free 5 ML VIAL (09:38)
[2021-01-13] MEDS: Balanced Salt Soln.-PLUS 500 ML BAG (09:38)
[2021-01-13] MEDS: Duovisc Viscoelastic System EACH 1 EACH (09:38)
[2021-01-13 10:00] VITALS: BP 154/76; PULSE 65; RESP 18; TEMP 36.5; O2SAT 98
--- NOTE | 2021-01-13 10:03 | W.ANESPOSTOP ---
Postoperative Evaluation Date, Time and Location Date Performed: 01/13/21 Time Performed: 10:03 Patient Location: Day Surgery Unit Vital Signs Most Recent Imported Vital Signs: Most Recent Vital Signs Temp Pulse Resp BP Pulse Ox 36.1 C L 66 16 150/77 H 99 01/13/21 08:45 01/13/21 08:45 01/13/21 08:45 01/13/21 08:45 01/13/21 08:45 Most Recent Manually Entered Vital Signs: Adult Blood Pressure: 154/76 Heart Rate: 60 Respirations: 12 Oxygen Saturation (%): 98 Temperature (C): 36.3 C Pain Score (0-10 Scale): 0 Pain Score Most Recent Pain Score: Most Recent Pain Score Pain Level 0 01/13/21 08:45 Assessment Mental Status: Awake (Alert & Oriented to Patient Baseline) Airway and Respiratory Function: Patent airway with normal (patient baseline) respiratory exam Cardiovascular Function: Hemodynamically Stable Hydration Status: Adequately Hydrated Nausea & Vomiting: No Nausea or Vomiting Pain: Pt. Denies Any Pain Peripheral Nerve Block: Patient did not receive a nerve block
[2021-01-13 10:04] VITALS: BP 154/76; PULSE 60; RESP 12; TEMPC 36.3; O2SAT 98
[2021-01-13 10:17] VITALS: BP 152/75; PULSE 65; RESP 18; TEMP 36.5; O2SAT 98
== END 2021-01-13 10:26 | disposition home or self-care (01) ==
LOC: SUR 08:06
PROVIDERS: PCP Family Medicine; Visit Provider Ophthalmology
PROC: (CPT 66984; principal; 2021-01-13 10:30)
DX: H25.042 Posterior subcapsular polar age-related cataract, left eye (principal); H25.12 Age-related nuclear cataract, left eye
CPT/HCPCS: 66984; V2632

== ENCOUNTER 2021-01-13 20:23 | Day surgery (SDC) | payer OTHER, SELFPAY ==
--- NOTE | 2021-01-13 10:03 | W.PM.DSUDISC ---
Discharge Plan Disposition Patient Disposition: HOME Condition: Good Discharge Details Attending Provider: Stephen Antonio Primary Care Provider: Venita Pelaez Home Meds and New Rx's Prescriptions: No Action lisinopril 20 mg Tablet 20 mg PO DAILY RF: 0 potassium chloride 10 mEq Tablet Extended Release 20 meq PO RF: 0 omeprazole 20 mg Capsule,Delayed Release(Dr/Ec) 20 mg PO BID-QID RF: 0 hydrochlorothiazide 25 mg Tablet 25 mg DAILY RF: 0 lisinopril 40 mg Tablet 40 mg PO DAILY RF: 0 rosuvastatin 10 mg Tablet 10 mg PO DAILY RF: 0 metoprolol succinate 50 mg tablet extended release 24 hr 50 mg PO DAILY RF: 0 Discharge Instructions Stand Alone Forms: Post-op Topical Cataract, Kira Duque (DSU) Discharge Orders Discharge Orders: Discharge Order (Routine); Ordered 01/13/21 Ordered By: Stephen Antonio DS: Diagnosis Discharge Diagnosis (1) Cortical cataract of left eye: Status: Resolved (2) Nuclear sclerotic cataract of left eye: Status: Resolved
--- NOTE | 2021-01-13 10:04 | W.PM.OP ---
Date of service: 01/13/21 Time of Service: 10:04 Operative Note Operative Note DATE OF PROCEDURE: 01/13/21 PRE-OP DIAGNOSIS: Nuclear/cortical cataract, left eye POST-OP DIAGNOSIS: same PROCEDURE: Cataract extraction using phacoemulsification with intraocular lens implant, left eye SURGEON: Stephen Antonio ANESTHESIA TYPE: Local By Surgeon and MAC Refer to Anesthesia Record PATHOLOGY: none sent COMPLICATIONS: None Patient was transported to: same day Patient's condition: stable Implants: Geovanni [employer] / [employer] Tecnis [id number] Indications: Progressive decreased vision due to cataract, left eye, with poor red reflex Procedure Description: CATARACT SURGERY OPERATIVE REPORT PREOPERATIVE DIAGNOSIS: 1. Nuclear/cortical cataract, left eye POSTOPERATIVE DIAGNOSIS: Same OPERATION: 1. Cataract extraction using phacoemulsification with posterior chamber intraocular lens implant, left eye. IOL: IOL Rental Salesperson/Model: Ge[employer] Ge[employer] / MARCO Tecnis [id number] IOL Power: + 16.5 diopters IOL Serial Number: [id number] Optic Diameter: 6.0 mm Haptic/Overall Diameter: 13.0 mm PHACO INFO: [employer]nie [employer] Vision System with OZil and Active [employer]uid[employer] Cumulative Dispersed Energy (CDE): 6.41 seconds SURGEON: Stephen Antonio MD, ANGEL ANESTHESIA: Monitored [facility] Care (MAC), with local sub-tenon's anesthetic infiltration COMPLICATIONS: None SPECIMENS: None INDICATIONS FOR PROCEDURE: The patient is a 71-year-old lady with history of diminished visual acuity in both eyes secondary to the development of bilateral cataracts. She has already undergone cataract surgery in the right eye and is doing well postoperatively. She now presents for cataract surgery of the left eye. PROCEDURE: The correct surgical eye was identified and marked as the left eye and the pupil was dilated in the preoperative area using mydriatics and cycloplegics. The dilated pupil size was 7.0 mm. Oral sedation was administered in the form of an Imprimis MKO Melt (midazolam 3mg/ketamine 25mg/ondansetron 2mg). The patient was brought to the operating room where cardiopulmonary monitoring was instituted and surgical time-out was performed, confirming the correct operative eye and IOL power. Topical anesthesia was administered and ophthalmic povidone-iodine 5% was instilled into the conjunctival fornices. Lidocaine gel was applied to the cornea and the gregorio-ocular area was prepped with Betadine 10% solution and draped in the usual sterile fashion for intraocular surgery, including an aperture drape. A Tegaderm transparent film dressing was cut in half and used to cover the lashes and lid margins. Care was taken to sequester the lashes and lid margins under the Tegaderm dressing. A lid speculum was placed between the lids of the operative eye and the Saad-Abigail operating microscope was maneuvered into position. Haja scissors were then used to make a conjunctival buttonhole approximately 6mm posterior to the limbus in the inferonasal quadrant. Blunt dissection was carried out to expose bare sclera, and a blunt-tipped sub-tenon?s anesthesia cannula was introduced and passed posteriorly along the globe where non-preserved plain lidocaine was injected into posterior sub-Tenon?s space. A sideport knife was used to make a paracentesis port superiorly/superiortemporally. Intraocular phenylephrine/lidocaine was injected int the anterior chamber.. The anterior chamber was filled with viscoelastic. A 2.4mm keratome knife was used to create a half-thickness groove at the limbus and then to construct a three-plane near-clear corneal tunnel extending 2.0mm into clear cornea at the 3:00 position. A flap was raised on the anterior capsule and capsulorhexis forceps were used to complete a continuous curvilinear capsulorhexis of 5.5 mm. Balanced salt solution was then used to perform cortical cleaving hydrodissection and nuclear hydrodelineation until the lens could be freely rotated within the capsular bag. The lens nucleus was then disassembled and removed within the capsular bag and iris plane using phacoemulsification. Residual cortical material was removed using the 45-degree angled silicone I/A tip with 0.3mm port. The posterior capsule was carefully polished to remove as much residual lens epithelial cells as safely possible. The capsular bag was then inflated and the anterior chamber deepened with viscoelastic. The lens implant described above was inserted into the capsular bag using the MARCO Salvisa Injector. A Kuglen hook was used to dial the IOL into position. Residual viscoelastic was then removed first from posterior to the IOL, then from the anterior chamber using the I/A handpiece. The lens implant was noted to center nicely within the capsular bag. The incisions were stromally hydrated, and the anterior chamber was reformed using BSS. Then 0.5cc of moxifloxacin 1.0mg/ml were injected into the capsular bag and anterior chamber. The incisions were checked with a Weck spear and found to be secure. Several drops of ophthalmic povidone-iodine 5% were then applied to the eye followed by two drops of Imprimis combination prednisolone/moxifloxacin/nepafenac solution. The drapes were removed and a clear plastic protective eye shield was placed over the eye. The patient was then returned to Same Day Surgery in stable condition.
== END 2021-01-13 20:24 | disposition home or self-care (01) ==
LOC: SUR 01-21 20:23
PROVIDERS: PCP Family Medicine; Visit Provider Ophthalmology
DX: H25.12 Age-related nuclear cataract, left eye (principal)
CPT/HCPCS: 66984